=== PATIENT | female | born 1980 | race American Indian/Alaskan Native ===

== ENCOUNTER 2017-05-11 23:30 | Emergency (ER) | payer SELFPAY ==
[~2017-05-11] VITALS: Ht 165.1 cm; Wt 70.5 kg
[~2017-05-11 23:30] MED LIST: MAGIC MOUTH PO; NORCO 325 MG-51 TAB PO; PRILOSEC 20MG20 MG; PRILOSEC 20MG20 MG PO; PRILOSEC10 MG PO; ROXICODONE 55 MG/TAB PO; ZANTAC 7575 MG PO
[2017-05-11 23:34] VITALS: TEMP 99.1
[2017-05-12 00:36] VITALS: BP 146/93; PULSE 121
== END 2017-05-12 00:40 | disposition home or self-care (01) ==
LOC: COL.ER 23:30
DX: R10.13 Epigastric pain (principal); K80.20 Calculus of gallbladder without cholecystitis without obstruction; R11.2 Nausea with vomiting, unspecified; B19.20 Unspecified viral hepatitis C without hepatic coma

== ENCOUNTER 2020-08-01 04:07 | Emergency (ER) | payer SELFPAY ==
[~2020-08-01] VITALS: Ht 165.1 cm; Wt 59.1 kg
[~2020-08-01 04:07] MED LIST changes: +CEPHALEXIN500 M1 PO; +PRILOTC
[2020-08-01 04:18] VITALS: BP 128/79; TEMP 98
[2020-08-01] MEDS ORDERED: ULTRAM 50MG TAB50 MG PO (04:49)
[2020-08-01 05:00] VITALS: PULSE 88
== END 2020-08-01 05:00 | disposition home or self-care (01) ==
LOC: COL.ER 04:07
DX: S90.32XA Contusion of left foot, initial encounter (principal); F17.210 Nicotine dependence, cigarettes, uncomplicated; Z88.6 Allergy status to analgesic agent; W20.8XXA Other cause of strike by thrown, projected or falling object, initial encounter; Y92.009 Unspecified place in unspecified non-institutional (private) residence as the place of occurrence of the external cause

== ENCOUNTER 2020-12-04 19:31 | Emergency (ER) | payer OTHER ==
[~2020-12-04] VITALS: Ht 165.1 cm; Wt 61.4 kg
[~2020-12-04 19:31] MED LIST changes: +ULTRAM 50MG TAB50 MG PO
[2020-12-04 19:32] VITALS: TEMP 98.1
[2020-12-04 20:23] VITALS: BP 104/70; PULSE 74
== END 2020-12-04 20:30 | disposition home or self-care (01) ==
LOC: COL.ER 19:31
DX: S00.83XA Contusion of other part of head, initial encounter (principal); S90.111A Contusion of right great toe without damage to nail, initial encounter; F17.210 Nicotine dependence, cigarettes, uncomplicated; Z88.6 Allergy status to analgesic agent; Z88.1 Allergy status to other antibiotic agents; Y04.8XXA Assault by other bodily force, initial encounter